=== PATIENT | male | born 1990 | race Caucasian/White ===

== ENCOUNTER 2018-03-05 15:51 | Emergency (ER) | payer SELFPAY ==
[2018-03-05] MEDS ORDERED: Ketorolac Tromethamine 30 MG/ML VIAL ONE (17:16)
== END 2018-03-05 17:52 | disposition home or self-care (01) ==
LOC: ERS 15:51
DX: M54.16 Radiculopathy, lumbar region (principal); F17.210 Nicotine dependence, cigarettes, uncomplicated
CPT/HCPCS: 36415; 85652; 96372; J1885

== ENCOUNTER 2018-04-12 00:23 | Emergency (ER) | payer SELFPAY ==
[2018-04-12] MEDS ORDERED: Ketorolac Tromethamine 30 MG/ML VIAL ONE ×2 (01:50)
== END 2018-04-12 02:25 | disposition home or self-care (01) ==
LOC: ERS 00:23
DX: M54.5 Low back pain (principal); F17.210 Nicotine dependence, cigarettes, uncomplicated
CPT/HCPCS: 96372; J1885